=== PATIENT | male | born 1955 | race Caucasian/White ===

== ENCOUNTER 2018-03-17 08:17 | Emergency (ER) | payer OTHER ==
[2018-03-17 08:30] VITALS: BP 170/92; PULSE 73; TEMP 98; BMI 29.9
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
== END 2018-03-17 10:37 | disposition home or self-care (01) ==
LOC: JERFT 08:17
PROC: 2W3QX1Z Immobilization of Right Lower Leg using Splint (ICD-10-PCS; principal; 2018-03-17)
DX: S82.391A Other fracture of lower end of right tibia, initial encounter for closed fracture (principal); V63 Occupant of heavy transport vehicle injured in collision with car, pick-up truck or van; Y93.89 Activity, other specified; Y92.410 Unspecified street and highway as the place of occurrence of the external cause; Y99.0 Civilian activity done for income or pay
CPT/HCPCS: 73590-TC-RT-FY; 73610-TC-RT-FY; 73630-TC-RT-FY; 99282-25

== ENCOUNTER 2021-06-10 10:25 | Observation (INO) | payer BC ==
[2021-06-10 10:35] VITALS: BMI 30.7
[2021-06-10] MEDS ORDERED: SODIUM CHLORIDE 1,000 ML IV SCH (10:45)
[2021-06-10 11:27] LABS: BASO % 0.6 % (0-2.0); EOS % 0.9 % (0-4.5); HEMATOCRIT 40.8 % (35.4-49); HEMOGLOBIN 13.9 GM/dL (11.7-16.9); LYMPH % 22.6 % (8-40); MCH 30.4 pg (25.7-33.7); MEAN CELL VOLUME 89.5 fl (80-96); MONO % 5.5 % (3.8-10.2); NEUT % 70.4 % (42.8-82.8); PLATELET COUNT 180 10^3/uL (134-434); RBC 4.56 M/mm3 (4.00-5.60); RDW 13.6 % (11.9-15.9); WHITE BLOOD COUNT 5.9 K/mm3 (4.0-10.0)
[2021-06-10 11:44] LABS: ACTIVATED PTT 48.5 SECONDS (25.2-36.5); INR 1.12 (0.83-1.09); PROTHROMBIN TIME (PATIENT) 12.9 SEC (9.7-13.0)
[2021-06-10 11:55] LABS: ALBUMIN 4.1 g/dl (3.4-5.0); CALCIUM 9.1 mg/dL (8.5-10.1)
[2021-06-10 11:56] LABS: BLOOD UREA NITROGEN 13.4 mg/dL (7-18)
[2021-06-10 11:59] LABS: CREATININE 0.9 mg/dL (0.55-1.3)
[2021-06-10 12:00] LABS: BILIRUBIN,TOTAL 0.4 mg/dL (0.2-1); TOT PROT 7.3 g/dl (6.4-8.2)
[2021-06-10 13:40] LABS: URINE APPEARANCE CLOUDY; URINE BILIRUBIN NEGATIVE (NEGATIVE); URINE COLOR YELLOW; URINE GLUCOSE (UA) NEGATIVE (NEGATIVE); URINE KETONE NEGATIVE (NEGATIVE); URINE LEUK ESTERASE NEGATIVE (NEGATIVE); URINE NITRITE NEGATIVE (NEGATIVE); URINE PROTEIN NEGATIVE (NEGATIVE); URINE UROBILINOGEN 0.2 mg/dL (0.2-1.0)
[2021-06-10] MEDS ORDERED: amLODIPine BESYLATE 5 MG TABLET (FP) PO SCH (15:00)
[2021-06-10] MEDS ORDERED: amLODIPine BESYLATE 5 MG TABLET (FP) ONE (15:42)
[2021-06-10] MEDS ORDERED: LABETALOL HCL 5 MG/1 ML (200MG/40ML VIAL) IVPB ONE ×2 (16:36→17:06)
[2021-06-11 08:06] LABS: CALCIUM 9.2 mg/dL (8.5-10.1)
[2021-06-11 08:07] LABS: BLOOD UREA NITROGEN 15.7 mg/dL (7-18)
[2021-06-11 08:10] LABS: CREATININE 0.9 mg/dL (0.55-1.3)
[2021-06-11] MEDS ORDERED: amLODIPine BESYLATE 5 MG TABLET (FP) ONE (08:52)
[2021-06-11] MEDS: amLODIPine BESYLATE 10 MG TABLET (FP) PO SCH (09:50)
[2021-06-11] MEDS ORDERED: ATORVASTATIN CA 40 MG TABLET (FP) PO SCH (10:00)
[2021-06-11] MEDS ORDERED: ASPIRIN 81 MG CHEWABLE TABLETS PO ONE (10:00)
[2021-06-11] MEDS ORDERED: LABETALOL HCL 5 MG/1 ML (100MG/20 ML VIAL) IVPUSH ONE (12:36)
[2021-06-11] MEDS: HYDROCHLOROTHIAZIDE 25 MG TABLET (FP) PO SCH (12:59)
[2021-06-11] MEDS: LISINOPRIL 20 MG TABLET PO SCH (12:59)
[2021-06-11] MEDS ORDERED: LISINOPRIL 20 MG TABLET PO ONE (14:55)
[2021-06-11 15:26] LABS: CALCIUM 9.4 mg/dL (8.5-10.1)
[2021-06-11 15:27] LABS: BLOOD UREA NITROGEN 12.7 mg/dL (7-18)
[2021-06-11 15:30] LABS: CREATININE 0.8 mg/dL (0.55-1.3)
[2021-06-11 15:35] LABS: N-TERMINAL BNP 205.7 pg/ml (5-125)
[2021-06-11 22:32] LABS: PHENCYCLIDINE,URINE NEGATIVE (NEGATIVE); URINE AMPHETAMINES NEGATIVE (NEGATIVE); URINE BENZODIAZEPINES NEGATIVE (NEGATIVE)
[2021-06-11 22:33] LABS: COCAINE, UR NEGATIVE (NEGATIVE); METHADONE, UR POSITIVE (NEGATIVE); OPIATES, URI NEGATIVE (NEGATIVE); URINE BARBITURATES NEGATIVE (NEGATIVE)
[2021-06-12] MEDS ORDERED: ACETAMINOPHEN 325 MG TABLET (FP) PO PRN (06:52)
[2021-06-12 08:34] LABS: BASO % 0.2 % (0-2.0); EOS % 0.4 % (0-4.5); HEMATOCRIT 43.5 % (35.4-49); HEMOGLOBIN 14.7 GM/dL (11.7-16.9); LYMPH % 19.1 % (8-40); MCH 30.5 pg (25.7-33.7); MCHC 33.9 g/dl (32.0-35.9); MEAN CELL VOLUME 89.8 fl (80-96); MEAN PLT VOLUME 9.1 fl (7.5-11.1); MONO % 6.5 % (3.8-10.2); NEUT % 73.8 % (42.8-82.8); PLATELET COUNT 217 10^3/uL (134-434); RBC 4.84 M/mm3 (4.00-5.60); RDW 13.7 % (11.9-15.9); WHITE BLOOD COUNT 9.5 K/mm3 (4.0-10.0)
[2021-06-12 08:46] LABS: BLOOD UREA NITROGEN 19.2 mg/dL (7-18); CALCIUM 9.7 mg/dL (8.5-10.1)
[2021-06-12 08:47] LABS: ALBUMIN 4.1 g/dl (3.4-5.0)
[2021-06-12 08:51] LABS: TOT PROT 7.3 g/dl (6.4-8.2)
[2021-06-12] MEDS: LISINOPRIL 20 MG TABLET PO SCH (10:52)
[2021-06-12] MEDS: amLODIPine BESYLATE 10 MG TABLET (FP) PO SCH (10:52)
[2021-06-12] MEDS: HYDROCHLOROTHIAZIDE 25 MG TABLET (FP) PO SCH (10:52)
[2021-06-12] MEDS: ENOXAPARIN NA (PORCINE) 40 MG/0.4 ML DISP.SYRIN SQ SCH (10:53)
[2021-06-12] MEDS: ASPIRIN 81 MG CHEWABLE TABLETS PO SCH (10:57)
[2021-06-12] MEDS: ATORVASTATIN CA 80 MG TABLET (FP) PO SCH (22:53)
[2021-06-13 07:43] LABS: ALBUMIN 3.8 g/dl (3.4-5.0); CALCIUM 9.2 mg/dL (8.5-10.1)
[2021-06-13 07:44] LABS: BLOOD UREA NITROGEN 23.6 mg/dL (7-18)
[2021-06-13 07:46] LABS: CREATININE 1.1 mg/dL (0.55-1.3)
[2021-06-13 07:47] LABS: BASO % 0.5 % (0-2.0); EOS % 1.1 % (0-4.5); HEMOGLOBIN 14.5 GM/dL (11.7-16.9); LYMPH % 28.7 % (8-40); MCH 30.8 pg (25.7-33.7); MCHC 34.4 g/dl (32.0-35.9); MEAN CELL VOLUME 89.3 fl (80-96); MEAN PLT VOLUME 8.9 fl (7.5-11.1); MONO % 9.1 % (3.8-10.2); NEUT % 60.6 % (42.8-82.8); PLATELET COUNT 198 10^3/uL (134-434); RDW 13.9 % (11.9-15.9); WHITE BLOOD COUNT 7.7 K/mm3 (4.0-10.0)
[2021-06-13 07:48] LABS: BILIRUBIN,TOTAL 0.9 mg/dL (0.2-1); TOT PROT 6.8 g/dl (6.4-8.2)
[2021-06-13] MEDS: HYDROCHLOROTHIAZIDE 25 MG TABLET (FP) PO SCH (10:48)
[2021-06-13] MEDS: LISINOPRIL 20 MG TABLET PO SCH (10:49)
[2021-06-13] MEDS: ASPIRIN 81 MG CHEWABLE TABLETS PO SCH (10:49)
[2021-06-13] MEDS: amLODIPine BESYLATE 10 MG TABLET (FP) PO SCH (10:49)
[2021-06-13] MEDS: ENOXAPARIN NA (PORCINE) 40 MG/0.4 ML DISP.SYRIN SQ SCH (10:51)
[2021-06-13] MEDS ORDERED: MELATONIN 5 MG TABLETS PO ONE (20:57)
[2021-06-13] MEDS: ATORVASTATIN CA 80 MG TABLET (FP) PO SCH (21:24)
[2021-06-14 07:36] LABS: CALCIUM 9.8 mg/dL (8.5-10.1)
[2021-06-14 07:37] LABS: ALBUMIN 4.3 g/dl (3.4-5.0); BLOOD UREA NITROGEN 24.7 mg/dL (7-18)
[2021-06-14 07:40] LABS: CREATININE 1.1 mg/dL (0.55-1.3)
[2021-06-14 07:41] LABS: BILIRUBIN,TOTAL 1.5 mg/dL (0.2-1); TOT PROT 7.4 g/dl (6.4-8.2)
[2021-06-14] MEDS: amLODIPine BESYLATE 10 MG TABLET (FP) PO SCH (09:39)
[2021-06-14] MEDS: ASPIRIN 81 MG CHEWABLE TABLETS PO SCH (09:39)
[2021-06-14] MEDS: LISINOPRIL 20 MG TABLET PO SCH (09:39)
[2021-06-14] MEDS: ENOXAPARIN NA (PORCINE) 40 MG/0.4 ML DISP.SYRIN SQ SCH (09:39)
[2021-06-14] MEDS: HYDROCHLOROTHIAZIDE 25 MG TABLET (FP) PO SCH (09:39)
[2021-06-14] MEDS ORDERED: MELATONIN 5 MG TABLETS PO ONE (21:39)
[2021-06-14] MEDS: ATORVASTATIN CA 80 MG TABLET (FP) PO SCH (22:07)
[2021-06-15] MEDS: LISINOPRIL 20 MG TABLET PO SCH (10:39)
[2021-06-15] MEDS: amLODIPine BESYLATE 10 MG TABLET (FP) PO SCH (10:39)
[2021-06-15] MEDS: HYDROCHLOROTHIAZIDE 25 MG TABLET (FP) PO SCH (10:39)
[2021-06-15] MEDS: ASPIRIN 81 MG CHEWABLE TABLETS PO SCH (10:39)
[2021-06-15] MEDS: ENOXAPARIN NA (PORCINE) 40 MG/0.4 ML DISP.SYRIN SQ SCH (10:39)
[2021-06-15] MEDS ORDERED: REGADENOSON 0.4 MG/5 ML PRE-FILLED SYRINGE IVPUSH ONE ×2 (13:56→14:00)
[2021-06-15] MEDS: ATORVASTATIN CA 80 MG TABLET (FP) PO SCH (22:26)
[2021-06-16 10:32] VITALS: BP 135/83; PULSE 79; TEMP 98.6
[2021-06-16] MEDS: amLODIPine BESYLATE 10 MG TABLET (FP) PO SCH (10:37)
[2021-06-16] MEDS: ENOXAPARIN NA (PORCINE) 40 MG/0.4 ML DISP.SYRIN SQ SCH (10:38)
[2021-06-16] MEDS: HYDROCHLOROTHIAZIDE 25 MG TABLET (FP) PO SCH (10:38)
[2021-06-16] MEDS: ASPIRIN 81 MG CHEWABLE TABLETS PO SCH (10:38)
[2021-06-16] MEDS: LISINOPRIL 20 MG TABLET PO SCH (10:38)
== END 2021-06-16 14:44 | disposition home or self-care (01) ==
LOC: JER 10:25 → JERBED 14:45 → J4W 06-11 12:07 → UNDODISOB 06-16 12:33
PROVIDERS: ADMIT Internal Medicine
PROC: 3E023GC Introduction of Other Therapeutic Substance into Muscle, Percutaneous Approach (ICD-10-PCS; principal; 2021-06-10)
PROC: 3E033GC Introduction of Other Therapeutic Substance into Peripheral Vein, Percutaneous Approach (ICD-10-PCS; 2021-06-10)
DX: R42 Dizziness and giddiness (principal); F41.9 Anxiety disorder, unspecified; I10 Essential (primary) hypertension; E78.00 Pure hypercholesterolemia, unspecified; R20.0 Anesthesia of skin; R47.81 Slurred speech; N20.0 Calculus of kidney; E66.9 Obesity, unspecified; Z68.30 Body mass index [BMI] 30.0-30.9, adult; R20.2 Paresthesia of skin; M62.81 Muscle weakness (generalized); Z87.891 Personal history of nicotine dependence; R41.0 Disorientation, unspecified; Z88.8 Allergy status to other drugs, medicaments and biological substances
CPT/HCPCS: 36415; 70450-TC; 78452-TC; 80048; 80053; 80061; 80307; 81003; 82088; 82384; 82962; 83036; 83835; 83880; 84244; 84443; 84484; 85025; 85610; 85730; 86850; 86900; 86901; 93005; 93010; 93017; 93306-TC; 93880-TC; 97116-GP; 97161-GP; 99291; A9502; C9803; G0378; J2785; U0003; U0005